=== PATIENT | male | born 1975 | race Caucasian/White ===

== ENCOUNTER 2017-08-07 16:00 | Emergency (ER) | payer SELFPAY ==
[2017-08-07 16:01] VITALS: BP 116/77; PULSE 86; RESP 16; TEMP 36.8; O2SAT 96; BMI 21.9
--- NOTE | 2017-08-07 16:47 | RAD_ITS ---
STUDY: X-RAY - RIGHT FOOT CLINICAL: Male, 42 years old. Right foot injury swelling and pain TECHNIQUE: 3 view(s) of the foot. COMPARISON: None. FINDINGS: Normal talus, calcaneus, and tarsal bones. Normal visualized subtalar, talonavicular, calcaneocuboid, tarsal and tarsometatarsal articulations. Normal metatarsi. Normal metatarsophalangeal joint of the great toe. Normal tibial and fibular sesamoid bones. Normal interphalangeal joint of the great toe. Normal phalanges of the great toe. Normal second through fifth metatarsophalangeal joints. Normal interphalangeal joints and phalanges of the lesser toes. The soft tissue structures are unremarkable. RAD/Foot min 3 Views IMPRESSION: Normal x-ray examination of the foot. Electronically Signed: Jose Peralta MD at 17:36 EDT , Service support ,
--- NOTE | 2017-08-07 17:27 | ED.VISSUMM ---
- ER Visit Summary Date of Service: 08/07/17 Chief Complaint: [Pain and swelling to right foot] History of Present Illness: The patient is a 42 M [presents to the emergency department with complaint of pain and swelling to the right foot that started 4 AM. Patient is not aware of any direct injury. States that he works in a [employer] and had worked all night on it. Patient does not have any history of gout. Patient noticed the discomfort we try to get out of his car and try to walk. Physical Examination: [Right foot-patient has some soft tissue swelling inferior to the medial malleolus. There is no ecchymosis or bruising. No erythema or warmth. Patient neurovascular intact distally.] Test Results: [X-rays of the right foot showed no fractures.] Emergency Department Course and Treatment: [Patient will be given crutches and Jerson wrap] Treatment Plan: [Patient will be started on naproxen] Disposition: Discharged to home in stable condition. Patient advised to ice and elevate extremity.] Impression: [Right foot sprain] This note was generated with [employer] dictation software. It may contain incorrect words, spelling, and punctuation that were not noted in review of the chart prior to signing ED Disposition - Plan for ED Patient: Chief Complaint: Lower Extremity Injury Referrals: Care Physician,No Primary [Primary Care Provider] -
--- NOTE | 2017-08-07 17:30 | ED.DCSUM_ITS ---
- ER Visit Summary Date of Service: 08/07/17 Chief Complaint: [Pain and swelling to right foot] History of Present Illness: The patient is a 42 M [presents to the emergency department with complaint of pain and swelling to the right foot that started 4 AM. Patient is not aware of any direct injury. States that he works in a [employer] and had worked all night on it. Patient does not have any history of gout. Patient noticed the discomfort we try to get out of his car and try to walk. Physical Examination: [Right foot-patient has some soft tissue swelling inferior to the medial malleolus. There is no ecchymosis or bruising. No erythema or warmth. Patient neurovascular intact distally.] Test Results: [X-rays of the right foot showed no fractures.] Emergency Department Course and Treatment: [Patient will be given crutches and Jerson wrap] Treatment Plan: [Patient will be started on naproxen] Disposition: Discharged to home in stable condition. Patient advised to ice and elevate extremity.] Impression: [Right foot sprain] This note was generated with [employer] dictation software. It may contain incorrect words, spelling, and punctuation that were not noted in review of the chart prior to signing ED Disposition - Plan for ED Patient: Chief Complaint: Lower Extremity Injury Referrals: Care Physician,No Primary [Primary Care Provider] -
--- NOTE | 2017-08-07 17:30 | ED.DEP ---
ED Disposition - Plan for ED Patient: Chief Complaint: Lower Extremity Injury Instructions: ED Sprain Foot Prescriptions: Naproxen [Naprosyn] 500 mg PO BID PRN #20 tab Referrals: Care Physician,No Primary [Primary Care Provider] - Dieter Louis MD [STAFF PHYSICIAN] - 5-7 Days
[2017-08-07 17:43] VITALS: RESP 16
--- NOTE | 2017-08-07 17:44 | ED.RN ---
REVIEWED D/C INSTRUCTIONS, FOLLOW UP CARE, PRESCRIPTION, AND S/S THAT WOULD WARRANT A RETURN TO THE ED WITH PT. PT VERBALIZED AN UNDERSTANDING AND DENIES FURTHER QUESTIONS FOR THIS RN. PT SKIN P/W/D, RESP EVEN AND UNLABORED, PT A&O X 3, NO DISTRESS NOTED. PT AMBULATED OUT OF ED, GAIT STEADY.
== END 2017-08-07 17:45 | disposition home or self-care (01) ==
PROVIDERS: Emergency Provider Emergency Medicine
DX: S93.601A Unspecified sprain of right foot, initial encounter (principal); X58.XXXA Exposure to other specified factors, initial encounter; Y93.9 Activity, unspecified; Y92.9 Unspecified place or not applicable; Z72.0 Tobacco use
CPT/HCPCS: 73630; 99282

== ENCOUNTER 2017-12-18 00:14 | Emergency (ER) | payer SELFPAY ==
[2017-12-18 00:15] VITALS: BP 122/63; PULSE 63; RESP 17; TEMP 36.1; O2SAT 96; BMI 21.1
[2017-12-18 00:23] VITALS: BP 122/63; PULSE 74; RESP 16; O2SAT 96
--- NOTE | 2017-12-18 00:41 | CT_ITS ---
STUDY: CT BRAIN WITHOUT CONTRAST REASON FOR EXAM: Male, 42 years old. Status post syncope RADIATION DOSAGE (If Supplied By Facility): CTDIvol = ( 44.99 ) mGy, DLP = ( 796.11 ) mGycm TECHNIQUE: Transaxial CT imaging of the brain was performed without administration of intravenous contrast material. Individualized dose optimization techniques were used for this CT. COMPARISON: None. FINDINGS: Normal soft tissue structures. Normal calvarium. Normal size ventricles and extra-axial spaces for the patient's age. Normal white matter tracts of the cerebral hemispheres. Normal basal ganglia and thalami. Normal brainstem. Normal cerebellum. There is no intracranial hemorrhage. There are no findings of an acute ischemic infarction. There is mild mucoperiosteal thickening of the paranasal sinuses. CT/Brain/Head without Contrast IMPRESSION: 1. No evidence of an acute intracranial abnormality. 2. Mild chronic paranasal sinus disease Electronically Signed: Pedro Cote MD at 1:17 EDT Tel , Service support ,
--- NOTE | 2017-12-18 00:43 | ED.VISSUMM ---
- ER Visit Summary Date of Service: 12/18/17 Chief Complaint: [Episode of altered mental status] History of Present Illness: The patient is a 42 M [who presents the emergency department with an episode of altered mental status. It occurred about 24 hours ago. He was at work and states that he just started staring off could not hear anything or process anything or do anything. Is not sure how long that lasted. He did not fall or lose muscle tone. He does remember it happening but was confused about it. He states he snapped out of it and went back to work however he had a similar episode again. That same evening. He has had no fevers or chills no chest pain or shortness of breath no headache vision changes numbness tingling balance disturbances or other issues. He was tired and slept all day today.] Physical Examination: [] WN WD NAD: Tall thin PERRL EOMI MMM NECK supple and nontender, no masses RRR no murmur rub or gallop, no peripheral edema, symmetric radial pulses CTAB no respiratory distress ABDOMEN is soft and nontender, normal bowel sounds, no distension, no rebound or guarding SKIN is warm and dry no rashes Alert and Oriented x3, CN II-XII in tact, no motor or sensory deficits, gait normal, NIH is 0 No lymphadenopathy Test Results: [] Emergency Department Course and Treatment: [EKG was sinus bradycardia at a rate of 52 with no acute ischemic changes or conduction abnormalities. He was mildly orthostatic. He was given fluids. Screening labs were unremarkable. I will add a TSH. Patient was asymptomatic while in the emergency department. While he was here he had a few episodes where his heart rate dropped to 46/47. He remained most of the time around 52-58. He does not describe presyncopal episodes. Just where he stares off into space and then snaps back into it. I think he can be discharged home however he requires close outpatient follow-up. He does not have a primary care doctor. He does not have insurance. I did discuss that he likely needs a Holter monitor. I emphasized the importance of follow-up and give him a referral to [facility]. I did inquire about applying a Holter monitor from the emergency department however was unable to do so.] Treatment Plan: [] Disposition: [Discharge] Impression: [2 spells of altered mental status, sinus bradycardia] This note was generated with [employer] dictation software. It may contain incorrect words, spelling, and punctuation that were not noted in review of the chart prior to signing ED Disposition - Plan for ED Patient: Chief Complaint: Syncope Referrals: Care Physician,No Primary [Primary Care Provider] -
[2017-12-18 00:48] LABS: Absolute Lymphocyte Count 2.16 X10^3/ul (0.83-4.51); Absolute Neutrophil Count 3.6 X10^3/uL (2.0-7.7); Basophil# 0.07 X10^3/uL; Basophil% 1.1 % (0-1); Eosinophil# 0.21 X10^3/uL; Eosinophils% 3.2 % (0-5); Hematocrit 43.2 % (40-54); Hemoglobin 15.1 g/dl (13.0-16.5); Lymphocyte # 2.16 X10^3/ul (4.0); Lymphocyte % 32.6 % (19-41); Mean Corpuscular Hgb 31.1 pg (27.0-32.0); Mean Corpuscular Volume 88.9 fL (80-94); Mean Platelet Vol. 11.7 fl (6.2-12.0); Monocyte# 0.59 X10^3/uL; Monocyte% 8.9 % (0-10); Neutrophil # 3.59 X10^3/uL (2.7-7.7); Platelet Count 190 K/mm3 (150-450); RBC Distribution Width CV 13.5 % (11.6-14.6); RBC Distribution Width SD 43.6 fl (35.1-43.9); Red Blood Count 4.86 M/mm3 (4.6-6.2); White Blood Count 6.6 K/mm3 (4.4-11.0)
[2017-12-18 00:49] LABS: POSITIVE COUNT NO; POSITIVE DIFFERENTIAL NO; POSITIVE MORPHOLOGY NO
[2017-12-18 00:50] VITALS: BP 104/72; BP 105/70; BP 115/73; PULSE 59; PULSE 63; PULSE 76
[2017-12-18] MEDS: 0.9% Normal Saline 1,000 ML 1000 ML IV (00:50)
[2017-12-18 00:54] LABS: Color, Urine Yellow (Yellow); Glucose, Dipstick Normal (Normal); Ketone-Dipstick 5 mg/dl (Negative); Leukocyte Esterase-Dipstick 100 /ul (Negative); Nitrite-Dipstick Negative (Negative); Occult Blood-Urine 10 /ul (Negative); Protein-Dipstick 30 mg/dl (Negative); Specific Gravity, Urine 1.025 (1.002-1.030); Urine Clarity Clear (Clear); Urine Urobilinogen 4 mg/dl (Normal)
[2017-12-18 00:59] LABS: Urine Bilirubin Dipstick 1 mg/dL (Negative)
[2017-12-18 01:12] LABS: ALB/GLOB Ratio 1.2 RATIO (0.9-2.4); AST(SGOT) 19 U/L (15-37); Alanine Aminotransfer ALT/SGPT 22 U/L (16-61); Alkaline Phosphatase 48 U/L (45-117); Anion Gap 4 (5-15); BUN 13 mg/dL (7-18); BUN/Creat Ratio 12.3 RATIO (10-20); Calcium,Total 8.7 mg/dL (8.5-10.1); Chloride 108 mmol/L (98-107); Creatinine, Serum 1.06 mg/dL (0.70-1.30); EST Glomerular Filtration Rate 82 mL/min (>60); Est Glom Filt Rate - Afr Amer 99 mL/min (>60); Estimated Creatinine Clearance 92.71 ml/min; Globulin 3.2 g/dL (2.2-4.2); Glucose 115 mg/dL (74-106); Potassium 3.6 mmol/L (3.5-5.1); Protein, Total 7.2 g/dL (6.4-8.2); Sodium Level 142 mmol/L (136-145)
--- NOTE | 2017-12-18 02:13 | ED.DEP ---
ED Disposition - Plan for ED Patient: Chief Complaint: Syncope Instructions: ED Bradycardia Referrals: Ana Godoy [NON-STAFF] - 1 Day Additional Instructions: suggest holter monitor to correlate with symptoms as heart rate was low in emergency department
[2017-12-18 02:27] VITALS: BP 111/62; PULSE 52; RESP 18; O2SAT 96
[2017-12-18 03:06] LABS: Thyroid Stim Hormone (TSH) 1.22 uIU/mL (0.358-3.74)
== END 2017-12-18 02:28 | disposition home or self-care (01) ==
PROVIDERS: Emergency Provider Emergency Medicine
DX: R41.82 Altered mental status, unspecified (principal); R00.1 Bradycardia, unspecified; Z72.0 Tobacco use
CPT/HCPCS: 70450; 80053; 81002; 84443; 84484; 85025; 93005; 96360; 96361; 99284; J7030; A4216

== ENCOUNTER 2021-11-18 19:44 | Emergency (ER) | payer BC, SELFPAY ==
[2021-11-18 19:45] VITALS: BP 129/69; PULSE 68; RESP 16; TEMP 36.6; O2SAT 99; BMI 21.9
--- NOTE | 2021-11-18 20:06 | EX.ED.UPPERE ---
HPI History of Present Illness Chief Complaint: Upper Extremity Injury Narrative Narrative: 46-year-old male presenting with shoulder pain which has had for about a month. Patient states it hurts in the anterior portion of the left shoulder. He denies any injury. He states sometimes it feels like it is in his mid trapezius. He does state that he has radiation of pain down his arm but does not describe it in a dermatomal sense. He states that his whole arm. He is episodes are more common when he sitting. When he is working and moving the seem to get better. Sitting upright seems to make it worse as well. Patient has been taking Tylenol at home without any relief. Patient denies neck pain. PFSH PFSH Medical History no medical history Home Medications cyclobenzaprine 10 mg tablet 10 mg PO BID PRN muscle spasm #14 tabs 11/18/21 [Rx Last Taken Unknown] naproxen 500 mg tablet (Naprosyn) 500 mg PO BID PRN pain #30 tabs 11/18/21 [Rx Last Taken Unknown] Allergy/AdvReac Type Severity Reaction Status Date / Time bee venom protein (honey bee) Allergy Swelling Verified 11/18/21 19:48 Surgical History no surgical history Social History Smoking Status: Current every day smoker tobacco type: cigarettes ROS ROS ED Constitutional Constitutional ED: Denies chills or fever(s) Eyes Eyes: Denies blurry vision or change in vision ENT ENT ED: Denies rhinorrhea or sore throat Cardiovascular Cardiovascular: Denies chest pain or palpitations Respiratory/Chest Respiratory/Chest: Denies cough or dyspnea Gastrointestinal Gastrointestinal: Denies abdominal pain or constipation Genitourinary Genitourinary ED: Denies dysuria or hematuria Musculoskeletal Musculoskeletal: Reports other Details: Left shoulder pain ; Denies back pain or neck pain Integumentary Denies abscess or Abrasions Neurologic Neurologic: Denies headache(s) or paresthesias Psychiatric Psychiatric: Denies anxiety or depression EXAM Physical Exam Const Vital Signs: 11/18/21 19:45 Temperature 98 F Temperature Source Temporal Pulse Rate 68 Respiratory Rate 16 Blood Pressure 129/69 H Blood Pressure Mean 89 Pulse Ox 99 Oxygen Delivery Method Room Air Positive well nourished General Appearance ED: NAD HEENT Reports moist mucous membranes normocephalic and atraumatic Eyes PERRL and EOMs intact bilaterally Neck full ROM General: Negative for tenderness Chest Wall inspection of chest normal Resp normal respiratory effort and clear to auscultation bilaterally Auscultation: Negative for rales, rhonchi or wheezes Cardio regular rate Extremity Extremity Narrative: Patient has no physical tenderness to palpation on exam of the left shoulder. Patient has full range of motion of the left shoulder in abduction, abduction, flexion and extension. There is no obvious deformity. Patient has 5/5 left upper extremity strength. Handgrips 5/5 equal and symmetrical. Left radial pulse 2+. Neuro oriented x3 and CN's II-XII intact bilaterally Sensorium / Orientation: alert Motor Exam: strength 5/5 throughout Skin Lesions: no lesions Rashes: no rashes MDM MDM MDM Narrative Medical decision making narrative: Patient presenting with left shoulder pain which is intermittent. Is not currently having the pain. He has full range of motion on examination. I did obtain x-ray of the left shoulder which on my interpretation shows no acute fracture or subluxation. Patient was given Naprosyn here. He declined a muscle relaxer. He request a work note for tonight. He was sent home with Naprosyn and Flexeril. He is counseled to follow-up with his PCP and was provided 1. Return precautions discussed. Impression: 1. Left shoulder strain Lab Data Attestation: I reviewed the patient's lab results. Discharge Plan Triage Chief Complaint: Upper Extremity Injury ED Provider: Edin Payne Dx/Rx/DC Orders Instructions: ED Shoulder Impingement Syndrome Prescriptions: New naproxen [Naprosyn] 500 mg tablet 500 mg PO BID PRN (Reason: pain) Qty: 30 0RF cyclobenzaprine 10 mg tablet 10 mg PO BID PRN (Reason: muscle spasm) Qty: 14 0RF Stand Alone Forms: ED Work / School Excuse Primary Care Provider: Care Physician,No Primary Referrals: Alessandro Lam MD [STAFF PHYSICIAN] - 3-5 Days Care Physician,No Primary [Primary Care Provider] - Disposition Disposition: Home, Self Care
--- NOTE | 2021-11-18 20:19 | RAD_ITS ---
STUDY: XR Shoulder Min 2 Views REASON FOR EXAM: Male, 46 years old. pain TECHNIQUE: XR Shoulder Min 2 Views LEFT COMPARISON: None. FINDINGS: Normal glenohumeral articulation. Normal acromioclavicular joint. Normal acromion. Normal humeral head and visualized proximal humerus. The soft tissue structures are unremarkable. Normal visualized pulmonary apex. RAD/Shoulder min 2 Views IMPRESSION: There are no acute findings of the shoulder. Electronically Signed: Jose Peralta MD at 20:36 EDT ,
[2021-11-18] MEDS: Naproxen 500 MG Tablet PO (20:49)
== END 2021-11-18 21:17 | disposition home or self-care (01) ==
PROVIDERS: Emergency Provider Student in an Organized Health Care Education/Training Program; Visit Provider Student in an Organized Health Care Education/Training Program
DX: S46.912A Strain of unspecified muscle, fascia and tendon at shoulder and upper arm level, left arm, initial encounter (principal); X58.XXXA Exposure to other specified factors, initial encounter; F17.210 Nicotine dependence, cigarettes, uncomplicated
CPT/HCPCS: 73030; 99283

== ENCOUNTER 2022-12-24 18:32 | Emergency (ER) | payer SELFPAY ==
[2022-12-24 18:32] VITALS: BP 118/63; PULSE 63; RESP 18; TEMP 36.6; O2SAT 100; BMI 22.4
--- NOTE | 2022-12-24 21:20 | EX.ED.UPPERE ---
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 He states his eyes not bothering him, but he noticed a little blood behind the whites of his eye on the left where he got hit. Denies any changes in his vision. Unknown tetanus but he does not want a booster. Tetanus Immunization: Unknown [facility] Medical History no medical history no medical history Home Medications NK 12/24/22 [History Last Taken Unknown] Allergy/AdvReac Type Severity Reaction Status Date / Time bee venom protein (honey bee) Allergy Swelling Verified 12/24/22 18:33 Surgical History no surgical history Social History Smoking Status: Current every day smoker tobacco type: cigarettes ROS ROS ED Constitutional Constitutional ED: Denies chills or fever(s) Musculoskeletal Musculoskeletal: Reports extremity pain; Denies neck pain Integumentary Reports wounds; Denies Abrasions or rash Neurologic Neurologic: Denies paresthesias or weakness EXAM Physical Exam Const Vital Signs: 12/24/22 18:32 Temperature 97.8 F Temperature Source Temporal Pulse Rate 63 Respiratory Rate 18 Blood Pressure 118/63 Blood Pressure Mean 81 Pulse Ox 100 Oxygen Delivery Method Room Air Positive well nourished and well developed General Appearance ED: well developed and NAD Eyes PERRL and EOMs intact bilaterally Eyes Narrative: Small focal subconjunctival hemorrhage to the nasal bulbar conjunctive a of the left eye, there is no hyphema. Neck full ROM and supple Back/Spine normal ROM and normal to inspection Extremity full ROM Extremity Narrative: Laceration to the ulnar aspect of the right forearm, proximal to the wrist. Full range of motion, no bony tenderness. Only subcutaneous tissue visible. Neuro oriented x3, no focal motor deficits and no sensory deficits noted Sensorium / Orientation: alert Psych mental status grossly normal and thought process normal Skin Skin Narrative: 3 cm L-shaped laceration of the to the distal ulnar aspect of the right forearm, see above. Clean appearing noncontaminated no active bleeding. Rashes: no rashes MDM MDM MDM Narrative Medical decision making narrative: Laceration was repaired see the procedure note. Sutures out in 10 days. 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 Dressed with bacitracin. Procedures Lacerations R ulnar distal forearm: Length: 3 cm Depth: Sub Q Shape: L-shaped Prep: Sterile Conditions and Chlorhexadine Laceration repair: Irrigated, Lidocaine (2% plain, 2cc), Local and Skin sutures Irrigated (ml): 60 Number of Sutures/[place]: 3 Suture Information: Ethilon, Simple (#1, at point of L), Horizontal, Mattress (#2) and 4-0 Discharge Plan Triage Chief Complaint: Laceration ED Provider: Barron Crow Dx/Rx/DC Orders Clinical Impression: Traumatic subconjunctival hemorrhage of left eye, Laceration of forearm, right Instructions: ED Laceration Extremity, ED Subconjunctival Hemorrhage Prescriptions: No Action NK Primary Care Provider: Care Physician,No Primary Referrals: Doctor,Your [Non-Staff] - 10 Day for suture removal (or ER or urgent care) Disposition Disposition: Home, Self Care
[2022-12-24] MEDS: Lidocaine 2% (20 ml mdv) 20 ML Vial 3 ML INFILT (21:31)
== END 2022-12-24 21:42 | disposition home or self-care (01) ==
PROVIDERS: Emergency Provider Emergency Medicine; Visit Provider Emergency Medicine
DX: S51.811A Laceration without foreign body of right forearm, initial encounter (principal); H11.32 Conjunctival hemorrhage, left eye; W01.10XA Fall on same level from slipping, tripping and stumbling with subsequent striking against unspecified object, initial encounter; Y93.H9 Activity, other involving exterior property and land maintenance, building and construction; F17.210 Nicotine dependence, cigarettes, uncomplicated
CPT/HCPCS: 12002; 99282

== ENCOUNTER 2023-04-25 18:07 | Emergency (ER) | payer SELFPAY ==
[2023-04-25 18:08] VITALS: BP 133/72; PULSE 74; RESP 20; TEMP 37.2; O2SAT 99; BMI 22.7
--- NOTE | 2023-04-25 18:41 | ED.VIS.DENTA ---
HPI History of Present Illness Chief Complaint: Dental Detail of Chief Complaint: No pain and facial swelling Narrative Narrative: Patient presents to the emergency department complaint of dental pain. He had discomfort for 2 days. Increased facial swelling to the left lower jaw. Denies fevers or chills or sweats. Patient otherwise has no medical history. PFSH PFSH Medical History no medical history Home Medications clindamycin HCl 300 mg capsule (Cleocin HCl) 300 mg PO Q6H #40 CAPSULES 04/25/23 [Rx Last Taken Unknown] hydrocodone-acetaminophen 5-325mg 5mg-325mg 1 tab PO Q4H PRN PRN Pain 2 days #10 TABLETS 04/25/23 [Rx Last Taken Unknown] Allergy/AdvReac Type Severity Reaction Status Date / Time bee venom protein (honey bee) Allergy Swelling Verified 04/25/23 18:08 Surgical History no surgical history Social History Smoking Status: Current every day smoker tobacco type: cigarettes ROS ROS ED Review of Systems ROS Unobtainable: other Constitutional Constitutional ED: Reports lethargy; Denies chills, fever(s), sweats or weight loss Eyes Eyes: Denies blurry vision, change in vision or diplopia ENT ENT ED: Reports other Details: Left lower dental pain ; Denies rhinorrhea or sore throat Cardiovascular Cardiovascular: Denies chest pain, orthopnea or racing heartbeat Respiratory/Chest Respiratory/Chest: Denies cough, dyspnea, dyspnea on exertion, orthopnea or sputum Gastrointestinal Gastrointestinal: Denies abdominal pain, diarrhea, nausea or vomiting Genitourinary Genitourinary ED: Denies dysuria, hematuria or urinary frequency Musculoskeletal Musculoskeletal: Denies arthralgias, back pain, myalgias or neck pain Integumentary Denies abscess, Abrasions or rash Neurologic Neurologic: Denies headache(s) or weakness Psychiatric Psychiatric: Denies anxiety, depression or suicidal thoughts Endocrine Endocrinology: Denies polydipsia, polyphagia or polyuria Hematologic/Lymphatic Hematologic/Lymphatic: Denies easy bleeding, easy bruising or lymphadenopathy Allergic/Immunologic Allergic/Immunologic ED: Denies mouth swelling, tongue swelling or urticaria EXAM Physical Exam Const Vital Signs: 04/25/23 18:08 Temperature 98.9 F Temperature Source Temporal Pulse Rate 74 Respiratory Rate 20 H Blood Pressure 133/72 H Blood Pressure Mean 92 Pulse Ox 99 Oxygen Delivery Method Room Air Positive well nourished and well developed General Appearance ED: well developed and NAD HEENT Reports TM's clear and moist mucous membranes HEENT Narrative: Dentition-patient has some soft tissue swelling noted to the left lower jaw. There are some gingival fullness and faint erythema adjacent to tooth #18 which is loose on palpation and slightly painful. No cellulitic changes noted. No fluctuance noted to the gingiva. normocephalic and atraumatic; Negative for trauma or tenderness Tympanic Membrane ED: Yes TM's clear Eyes PERRL and EOMs intact bilaterally General Eye ED: Negative for pale conjunctiva or scleral icterus Neck no lymphadenopathy, supple and no JVD General: Negative for tenderness Chest Wall inspection of chest normal and palpation of chest normal Chest: Negative for tenderness Resp normal respiratory effort and clear to auscultation bilaterally Effort and Inspection: Negative for respiratory distress or pain with movement Auscultation: Negative for rhonchi, wheezes or diminished lung sounds Cardio regular rate, regular rhythm, S1 normal heart sound, S2 normal heart sound and no murmurs Peripheral Pulses: pulses 2+ throughout GI normal to inspection, nondistended, normoactive bowel sounds, soft to palpation, non-tender, non-distended and no masses Back/Spine no CVA tenderness and no thoracic nor lumbar tenderness Extremity normal to inspection General Extremety ED: Negative for edema General Extremity: Negative for edema Neuro oriented x3, CN's II-XII intact bilaterally, no sensory deficits noted and gait normal Sensorium / Orientation: awake, alert, oriented to person, oriented to place and oriented to time Motor Exam: strength 5/5 throughout and strength abnormal Psych mental status grossly normal Skin no rashes or lesions noted and no wounds MDM MDM MDM Narrative Medical decision making narrative: Patient with dental pain and jaw swelling. I suspect developing abscess. There is no fluctuance and I do not think there is anything amenable to I&D at this time. Recommended antibiotics and something for pain and follow-up with dentist. Advised to return if increasing pain, redness, fever, chills or sweats, or condition worsening way. Discharge Plan Triage Chief Complaint: Dental ED Provider: Stevo Mcduffie Dx/Rx/DC Orders Clinical Impression: Pain, dental, Dental abscess Instructions: ED Abscess Antibiotic Treatment Only, ED Dental Pain Prescriptions: New clindamycin HCl [Cleocin HCl] 300 mg capsule 300 mg PO Q6H Qty: 40 0RF hydrocodone-acetaminophen [hydrocodone-acetaminophen] 5-325 mg tablet 1 tab PO Q4H PRN PRN (Reason: Pain) 2 Days Qty: 10 0RF Primary Care Provider: Care Physician,No Primary Referrals: Care Physician,No Primary [Primary Care Provider] - Activity Restrictions/Additional Instructions: Follow-up with the dentist at earliest possible time Disposition Disposition: Home, Self Care Discharge Date/Time: 04/25/23 19:04
[2023-04-25] MEDS: Clindamycin HCl 150 MG Capsule 300 MG PO (18:50)
== END 2023-04-25 19:04 | disposition home or self-care (01) ==
LOC: ED 19:01
PROVIDERS: Emergency Provider Emergency Medicine; Visit Provider Emergency Medicine
DX: K04.7 Periapical abscess without sinus (principal); K08.89 Other specified disorders of teeth and supporting structures; F17.210 Nicotine dependence, cigarettes, uncomplicated
CPT/HCPCS: 99282